=== PATIENT | male | born 1970 ===

== ENCOUNTER → 2020-08-03 11:02 | Outpatient (BNVA) | payer MEDICAID, SELFPAY | PROVIDERS: Visit Provider Urology | DX: E29.1 Testicular hypofunction (principal) | CPT/HCPCS: 99202 ==

== ENCOUNTER → 2020-08-30 11:24 | Outpatient (BNVA) | payer MEDICAID, SELFPAY | PROVIDERS: Visit Provider Urology | DX: Z13.89 Encounter for screening for other disorder (principal) | CPT/HCPCS: 99212 ==